=== PATIENT | male | born 1980 | race Caucasian/White ===

== ENCOUNTER 2016-11-26 17:47 | Emergency (ER) | payer MEDICAID, OTHER ==
[2016-11-26 17:57] VITALS: TEMP 98.7
--- NOTE | 2016-11-26 19:15 | C.PDOC ---
History Of Present Illness 36 y/o male, with history of chronic abscess, presents to ED for evaluation of draining, painful abscess to b/l axillary and groin region. Patient reports being seen by PMD a month ago and was prescribed antibiotics. Patient states his symptoms still persist which prompted him to visit ER. Patient states his pain radiates from the groin to his buttocks. Notes that right axillary pain is worse than left. Otherwise, denies any fever, or chills. Time Seen by Provider: 11/26/16 18:56 Chief Complaint (Nursing): Abnormal Skin Integrity History Per: Patient History/Exam Limitations: no limitations Onset/Duration Of Symptoms: Days Current Symptoms Are (Timing): Still Present Location Of Injury: Right: Arm (axillary), Hip (groin), Left: Arm, Hip Quality Of Symptoms: Painful, Draining Recent travel outside of the [place]: No Additional History Per: Patient Past Medical History Reviewed: Historical Data, Nursing Documentation, Vital Signs Vital Signs: Last Vital Signs Temp 98.7 F 11/26/16 17:56 Pulse 89 11/26/16 19:22 Resp 18 11/26/16 19:22 BP 139/78 11/26/16 19:22 Pulse Ox 98 11/26/16 20:39 - Medical History PMH: Denies: Diabetes, Hepatitis, HIV, HTN, Seizures, Sexually Transmitted Disease Family History: States: Unknown Family Hx - Social History Hx Tobacco Use: Yes Hx Alcohol Use: Yes (Chronically, for years) Hx Substance Use: Yes (MDMA and Marijuana) - Immunization History Hx Tetanus Toxoid Vaccination: No Hx Influenza Vaccination: No Hx Pneumococcal Vaccination: No Review Of Systems Except As Marked, All Systems Reviewed And Found Negative. Constitutional: Negative for: Fever, Chills Skin: Positive for: Other (painful, draining abscess) Neurological: Negative for: Weakness, Numbness Physical Exam - Physical Exam Appears: Non-toxic, No Acute Distress Skin: Warm, Dry, Other (hidradenitis suppurativa to b/l axillary, groin, and buttock region. R axillary > L axillary. several openings with yellow drainage, no obvious fluctuance in one area) Head: Atraumatic, Normacephalic Extremity: Normal ROM, No Deformity Extremity: Bilateral: Atraumatic Pulses: Left Femoral: Normal, Right Femoral: Normal Neurological/Psych: Oriented x3, Normal Speech, Normal Cognition ED Course And Treatment O2 Sat by Pulse Oximetry: 98 (RA) Pulse Ox Interpretation: Normal Progress Note: Patient was given Clindamycin, and Percocet. On reassessment, pt reports feeling better, with improvement of symptoms. Patient is being discharged home and is instructed to f/u with general surgery. Disposition - Disposition Referrals: [facility] [Outside] [facility] [Outside] Disposition: HOME/ ROUTINE Disposition Time: 19:12 Condition: STABLE Additional Instructions: Follow up with General international trade specialist. You should make an appointment to the medical clinic and they will referrer you to the surgeon. Take medication as instructed, Return to ED if feel worse. Prescriptions: Clindamycin [Cleocin] 300 mg PO Q6 #40 cap traMADol [Ultram] 50 mg PO Q6 #30 tab Instructions: Clindamycin (By mouth), Abscess (ED) - Clinical Impression Clinical Impression: Suppurative hidradenitis - PA / GUIDE WINDER / Resident Statement MD/DO has reviewed & agrees with the documentation as recorded. - Scribe Statement The provider has reviewed the documentation as recorded by the Scribhellen Myers All medical record entries made by the David were at my direction and personally dictated by me. I have reviewed the chart and agree that the record accurately reflects my personal performance of the history, physical exam, medical decision making, and the department course for this patient. I have also personally directed, reviewed, and agree with the discharge instructions and disposition.
[2016-11-26] MEDS ORDERED: Oxycodone/Acetaminophen 5/325 mg Tab PO STA (19:17)
[2016-11-26] MEDS ORDERED: Oxycodone/Acetaminophen 5/325 mg Tab ONE (19:21)
[2016-11-26 19:23] VITALS: BP 139/78; PULSE 89; RESP 18
[2016-11-26 20:32] VITALS: O2SAT 98
== END 2016-11-26 19:30 | disposition home or self-care (01) ==
LOC: C.ER 17:47 → SUPCPDRO 17:47 → C.ER 19:30
DX: L73.2 Hidradenitis suppurativa (principal)

== ENCOUNTER 2017-01-07 08:27 | Day surgery (SDC) | payer MEDICAID, OTHER ==
[2016-12-29 09:39] VITALS: BMI 36.1
[2017-01-07] MEDS ORDERED: Midazolam 2 MG/2 ML VIAL ONE (09:36)
[2017-01-07] MEDS ORDERED: Propofol 10 mg/ml Inj (20 ML) ONE ×2 (09:37→09:50)
[2017-01-07] MEDS ORDERED: Lidocaine 1% Inj (20ml) ONE (09:52)
[2017-01-07] MEDS ORDERED: Bupivacaine 0.5%/Epi 1:200,000 (10 ML SOL) ONE (09:52)
[2017-01-07] MEDS ORDERED: ceFAZolin IV 2 gm in Dextrose 1 GM/50 ML BAG IVPB ONE (09:52)
[2017-01-07] MEDS ORDERED: HYDROmorphone 0.5 mg/0.5 ml ISec IVP PRN (11:27)
--- NOTE | 2017-01-07 11:38 | PCM.SURG1 ---
Surgeon's Initial Post Op Note - Surgeon's Notes Surgeon: Dr. Jordan Stocking Inspector: elliott landaverde PGY2 Type of Anesthesia: General Endo Pre-Operative Diagnosis: R thigh mass . possible hydranitis Operative Findings: R upper thigh mass [id number]. Possible hydranitis Post-Operative Diagnosis: R upper thigh mass, possible hydranitis Operation Performed: excision of thigh mass Specimen/Specimens Removed: R thigh mass Estimated Blood Loss: EBL {In ML}: 10 Blood Products Given: N/A Drains Used: No Drains Post-Op Condition: Good Date of Surgery/Procedure: 01/07/17 Time of Surgery/Procedure: 11:38
--- NOTE | 2017-01-07 11:39 | CP.SDSHP ---
Same Day Surgery H & P - History Proposed Procedure: Excision of mass on R thigh Pre-Op Diagnosis: R thigh mass - Allergies Allergies: Allergies No Known Allergies Allergy (Verified 11/26/16 17:56) - Physical Exam General Appearance: NAD Vital Signs: Vital Signs 01/07/17 08:38 Temperature 97.3 F L Pulse Rate 76 Respiratory 20 Rate Blood Pressure 129/83 O2 Sat by Pulse 96 Oximetry Mental Status: Alert & Oriented x3 Neuro: WNL Heart: WNL Lungs: WNL GI: WNL - {Optional Preform as Required} Breast: WNL Abdomen: WNL Integument: WNL Short Stay Discharge - Short Stay Discharge Admitting Diagnosis/Reason for Visit: SEBACEOUS CYST OF RIGHT THIGH Disposition: HOME/ ROUTINE Follow-up: follow up with dr. Jordan in 2 weeks. Instructions: Dermal Cyst Excision (DC)
[2017-01-07 11:47] VITALS: TEMP 97
[2017-01-07 12:47] VITALS: RESP 18
[2017-01-07] MEDS ORDERED: Oxycodone/Acetaminophen 5/325 mg Tab PO PRN (13:00)
[2017-01-07 13:04] VITALS: BP 126/70; PULSE 68; O2SAT 100
--- NOTE | 2017-01-07 21:35 | OP ---
PROCEDURE DATE: 01/07/2017 PREOPERATIVE DIAGNOSIS: Right posterior thigh large mass approximately 8 x 10 cm size, it is a possible hidradenitis, possible sebaceous cyst. POSTOPERATIVE DIAGNOSIS: Right posterior thigh large mass approximately 8 x 10 cm size, it is a possible hidradenitis, possible sebaceous cyst. PROCEDURES DONE: 1. Wide local excision of right posterior thigh mass approximately 10 x 8 cm size. 2. Complex layer closure of the wound, approximately 10 x 4 cm size. SURGEON: Dr. Jordan. INFECTION CONTROL PREVENTIONIST: Ji, PGY-2 resident. TYPE OF ANESTHESIA: General endotracheal tube anesthesia. ESTIMATED BLOOD LOSS: 50 mL. DRAINS: None. PATHOLOGY: The right posterior thigh mass was sent for the pathology. COMPLICATIONS: None. INTRAOPERATIVE FINDINGS: The patient had multiple openings on the right posterior thigh with post discharge and it seemed like the hidradenitis and on intraoperative steps, this 37-year-old male who was diagnosed with right posterior thigh mass and it was diagnosed with possible sebaceous cyst or possible hidradenitis. The patient was brought to the OR, placed supine on the operating table and after induction of the anesthesia, the patient was placed in right lateral position and right perineal area was prepped and draped in usual sterile fashion and elliptical 10 x 3 cm incision was made after incising skin and subcutaneous tissue. Upper and lower flap was created and medial and lower dissection was done. The dissection was carried down up to the underlying the subcutaneous tissue and the whole soft tissue mass was completely excised and sent to the table for the pathology and after the proper irrigation, the hemostasis was achieved and wound was closed in multiple layers. Upper and lower flap was sutured to the underlying subcutaneous tissue with a 2-0 Vicryl; one layer of subcu with 2-0 Vicryl, another layer of subcu with 3-0 Vicryl and 4-0 Monocryl for the skin and another layer of the 4-0 nylon for the skin and dry sterile dressing was applied. The patient tolerated the procedure well. Count of the instruments was correct. There was no apparent complication. The patient was extubated in the OR, sent to the postanesthesia care unit in stable condition. Supa Jordan MD
== END 2017-01-07 13:06 | disposition home or self-care (01) ==
LOC: C.SDS 08:27
PROVIDERS: ATTEND Surgery Surgical Critical Care
DX: L98.8 Other specified disorders of the skin and subcutaneous tissue (principal)
CPT/HCPCS: 11406; 13121; 13122; 80324; 80345; 80346; 80349; 80353; 80358; 80361; 83992; 88304; 88305; J0690; J1170; J2250; J2704; J3010

== ENCOUNTER 2017-02-04 19:55 | Emergency (ER) | payer OTHER ==
[2017-02-04 19:56] VITALS: BMI 36.1
[2017-02-04 20:56] LABS: BASO # 0.1 K/uL (0.0-0.2); BASO % 0.9 % (0.0-2.0); EOS # 0.2 K/uL (0.0-0.7); EOS % 2.1 % (0.0-4.0); HEMATOCRIT 49.4 % (35.0-51.0); LYMPH # 2.8 K/uL (1.0-4.3); LYMPH % 27.8 % (20.0-40.0); MEAN CELL VOLUME 87.6 fL (80.0-94.0); MEAN CORPUSCULAR HEMOGLOBIN 29.4 pg (27.0-31.0); MEAN CORPUSCULAR HGB CONC 33.6 g/dL (33.0-37.0); MEAN PLATELET VOLUME 10.3 fL (7.2-11.7); MONO # 0.7 K/uL (0.0-0.8); NRBC % 0.1 % (0.0-2.0); RED CELL DISTRIBUTION WIDTH 13.8 % (11.5-14.5)
[2017-02-04] MEDS ORDERED: Iohexol 300 100 ML IJ ONE (21:31)
[2017-02-04 21:36] LABS: CHLORIDE 101 mmol/L (98-107)
[2017-02-04 21:37] LABS: SODIUM 140 mmol/L (132-148)
[2017-02-04 21:39] LABS: GFR AFRICAN-AMERICAN > 60
[2017-02-04 21:40] LABS: ALB/GLOB RATIO 1.4 (1.0-2.1); ALKALINE PHOSPHATASE 68 U/L (38-126); ALT/SGPT 117 U/L (21-72); AST/SGOT 83 U/L (17-59); BLOOD UREA NITROGEN 11 mg/dL (9-20); CALCIUM 8.9 mg/dl (8.6-10.4); CARBON DIOXIDE 22 mmol/L (22-30); GLUCOSE,RANDOM 82 mg/dL (75-110); TOTAL PROTEIN 7.8 g/dL (6.3-8.3)
[2017-02-04 22:09] LABS: RBC URINE < 1 /hpf (0-3); URINE BACTERIA RARE (<OCC); URINE BILIRUBIN NEGATIVE (NEGATIVE); URINE BLOOD NEGATIVE (NEGATIVE); URINE COLOR Yellow (YELLOW); URINE GLUCOSE (UA) NORMAL (Normal); URINE KETONE NEGATIVE (NEGATIVE); URINE LEUKOCYTE ESTERASE NEG Leu/uL (Negative); URINE PROTEIN NEGATIVE (NEGATIVE); URINE UROBILINOGEN NORMAL mg/dL (0.2-1.0); WBC URINE 1 /hpf (0-5)
--- NOTE | 2017-02-04 22:52 | CT ---
EXAM: CT Pelvis With Intravenous Contrast CLINICAL HISTORY: 37 years old, male; Condition or disease; Abscess; Rectal and other: Rt groin; Additional info: R groin to rectal area, abscess, ? fistula TECHNIQUE: Axial computed tomography images of the pelvis with intravenous contrast. All CT scans at this facility use one or more dose reduction techniques, viz.: automated exposure control; ma/kV adjustment per patient size (including targeted exams where dose is matched to indication; i.e. head); or iterative reconstruction technique. Coronal and sagittal reformatted images were created and reviewed. CONTRAST: 100 mL of OMNIPAQUE 300 administered intravenously. COMPARISON: No relevant prior studies available. FINDINGS: Liver: Hepatomegaly. Diffuse hepatic steatosis. Bowel: Unremarkable. No obstruction. No mucosal thickening. Appendix: No findings to suggest acute appendicitis. Intraperitoneal space: Unremarkable. No free air. No significant fluid collection. Bladder: Unremarkable. No mass. Reproductive: Unremarkable as visualized. Bones/joints: Metal side plate and screws related to internal fixation right pelvis. Mild osteoarthritis right hip. No acute fracture. No dislocation. Soft tissues: Small fat-containing umbilical hernia. The abnormal gas and fluid collection subcutaneously within the upper/medial right posterior thigh. This is most consistent with an abscess. This measures 5 x 1.9 CM. There is regional cellulitis. No definite fistula. Vasculature: Unremarkable. No lower abdominal aortic aneurysm. Lymph nodes: Unremarkable. No enlarged lymph nodes. IMPRESSION: 1. 5 x 1.9 CM abscess upper posteromedial right thigh. Regional cellulitis. No definite fistulous tract, however if there is continuous output from the abscess, then followup fistulogram can be considered. 2. Remainder of findings as above.
[2017-02-04] MEDS ORDERED: Lidocaine 1%/Epinephrine 1:100000 30 ml vial IJ ONE (23:13)
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
[2017-02-04] MEDS ORDERED: Amoxicillin-Clav 875-125 mg Tab PO STA (23:44)
[2017-02-04 23:46] VITALS: BP 123/80; PULSE 68; RESP 16; TEMP 98
[2017-02-04 23:47] VITALS: O2SAT 96
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
[2017-02-04] MEDS ORDERED: Amoxicillin-Clav 875-125 mg Tab PO ONE (23:56)
== END 2017-02-05 00:30 | disposition home or self-care (01) ==
LOC: C.ER 19:55
DX: L02.415 Cutaneous abscess of right lower limb (principal); F17.210 Nicotine dependence, cigarettes, uncomplicated
CPT/HCPCS: 10060; 72193; 80053; 81001; 83690; 85025; 87040; 87070; 96374; 99285; J1885; Q9967